=== PATIENT | female | born 1975 | race Two or more races ===

== ENCOUNTER → 2017-06-15 | Outpatient (REF) | payer BC | LOC: M LAB REF 12:19 | DX: N30.01 Acute cystitis with hematuria (principal) | CPT/HCPCS: 87186 ==

== ENCOUNTER 2020-03-15 03:17 | Day surgery (SDC) | payer BC ==
[~2020-03-15] VITALS: Ht 165.1 cm; Wt 65.1 kg
[2020-03-15] VITALS (9 sets, daily range): BP systolic 89–101; BP diastolic 53–57
[2020-03-15] MEDS ORDERED: ALLE180T33 PO (03:26)
[2020-03-15] MEDS ORDERED: NS 1,000 ML IV ONE (03:45)
[2020-03-15 04:13] LABS: BASO % 0.2 % (0.0-1.0); HEMATOCRIT 35.1 % (36.0-47.0); HEMOGLOBIN 11.6 g/dl (12.0-15.5); LYMPH # 0.6 10^3/uL (1.5-5.0); LYMPH % 4.5 % (24.0-44.0); MEAN CORPUSCULAR HEMOGLOBIN 29.1 pg (27.0-33.0); MEAN CORPUSCULAR VOLUME 88.2 fl (80.0-96.0); MONO # 0.8 10^3/uL (0.0-0.8); MONO % 5.6 % (0.0-5.0); NEUTROPHILS # 12.2 10^3/uL (1.5-8.5); NEUTROPHILS % 89.3 % (36.0-66.0); PLATELET COUNT, AUTOMATED 223 10^3/uL (150-450); RED BLOOD COUNT 3.98 10^6/uL (4.00-5.40); WHITE BLOOD COUNT 13.7 10^3/uL (4.0-10.0)
[2020-03-15] MEDS ORDERED: ONDANSETRON 4MG/2ML VIAL IV ONE (04:15)
[2020-03-15] MEDS ORDERED: MORPHINE 4 MG/ML 1ML VIAL/SYRINGE (J2270) IV PRN (04:15)
[2020-03-15] MEDS ORDERED: ACETAMINOPHEN *IV* 1,000 MG in IV 1 EA IV ONE (04:15)
[2020-03-15] MEDS ORDERED: ISOVUE-370 76% 100ML VIAL As Ordered ONE (04:20)
[2020-03-15 04:37] LABS: ALBUMIN 3.9 GM/DL (3.2-5.2); BILIRUBIN,DIRECT 0.2 MG/DL (0.0-0.2); BILIRUBIN,TOTAL 0.7 MG/DL (0.2-1.0); TOTAL PROTEIN 7.4 GM/DL (6.4-8.2)
--- NOTE | 2020-03-15 04:46 | REPVR ---
PROCEDURE INFORMATION: Exam: CT Abdomen And Pelvis With Contrast Exam date and time: 03/15/2020 4:25 AM Age: 44 years old Clinical indication: Abdominal pain; Additional info: Rlq abd pain, n/v/d TECHNIQUE: Imaging protocol: Computed tomography of the abdomen and pelvis with intravenous contrast. Radiation optimization: All CT scans at this facility use at least one of these dose optimization techniques: automated exposure control; mA and/or kV adjustment per patient size (includes targeted exams where dose is matched to clinical indication); or iterative reconstruction. Contrast material: ISO 370; Contrast volume: 100 ml; Contrast route: INTRAVENOUS (IV); COMPARISON: No relevant prior studies available. FINDINGS: Lungs: There is a 5 mm left lower lobe subpleural lung nodule on axial image 6. Minimal bilateral posterior dependent atelectatic changes seen. Liver: Normal. No mass. Gallbladder and bile ducts: Normal. No calcified stones. No ductal dilation. Pancreas: Normal. No ductal dilation. Spleen: Normal. No splenomegaly. Adrenals: Normal. No mass. Kidneys and ureters: Normal. No hydronephrosis. Stomach and bowel: The distal transverse and descending colon are nondistended limiting their evaluation for wall thickening. Appendix: The appendix is enlarged measuring up to 1.1 cm with wall thickening and significant periappendiceal inflammation. Small faint hyperdensities seen at the base and mid aspect of the appendix possibly small appendicoliths. Intraperitoneal space: Unremarkable. No free air. No significant fluid collection. Vasculature: Unremarkable. No abdominal aortic aneurysm. Lymph nodes: Right abdominal reactive lymph nodes are seen. Urinary bladder: Unremarkable as visualized. Reproductive: IUD seen in place. There is 2.4 x 1.5 cm right adnexal and 1.8 x 1.3 cm left adnexal cysts. Bones/joints: Unremarkable. No acute fracture. Soft tissues: Partially imaged is bilateral breast prostheses. IMPRESSION: 1. Acute appendicitis. 2. Bilateral ovarian cysts. 3. 5 mm left lower lobe subpleural lung nodule. - For patients at low risk (minimal or absent history of smoking and of other known risk factors), no routine follow-up is indicated. - For patients at high risk (history of smoking or of other known risk factors), consider optional CT Chest at 12 months. - In patients with known cancer Fleischner Society follow up recommendations for incidental nodules are not indicated. Follow up per the patient's medical condition is suggested. Electronically signed by: Aris Jensen On 03/15/2020 04:46:17 AM
[2020-03-15] MEDS ORDERED: PIPERACILLIN/TAZOBACTAM SOD 3.375 GM in D5W MINI-BAG PLUS 50 ML IV ONE (05:00)
[2020-03-15] MEDS ORDERED: BUPIVACAINE/EPIN 0.25% 30 ML VIAL As Ordered ONE (05:54)
[2020-03-15] MEDS ORDERED: ROCURONIUM BROMIDE 50 MG/5 ML VIAL As Ordered ONE (06:37)
[2020-03-15] MEDS ORDERED: propofoL 200 MG/20 ML VIAL As Ordered ONE (06:38)
[2020-03-15] MEDS ORDERED: ONDANSETRON 4MG/2ML VIAL As Ordered ONE (06:38)
[2020-03-15] MEDS ORDERED: LIDOCAINE 2% 100MG/5ML SDV (FOR ANES.) As Ordered ONE (06:38)
[2020-03-15] MEDS ORDERED: SUGAMMADEX SODIUM 500 MG/5 ML VIAL (BRIDION) As Ordered ONE ×2 (06:39→06:43)
[2020-03-15] MEDS ORDERED: MIDAZOLAM INJ 2MG/2ML VIAL (J2250 PER 1MG) As Ordered ONE (06:39)
[2020-03-15] MEDS ORDERED: KETOROLAC 60MG 2ML VIAL As Ordered ONE ×2 (06:39→07:30)
[2020-03-15] MEDS ORDERED: fentaNYL 100 MCG/2 ML INJECTION (J3010) As Ordered ONE ×2 (06:39→07:14)
[2020-03-15] MEDS ORDERED: dexameTHASONE 4 MG/ML 1ML VIAL (J1100 PER 1MG) As Ordered ONE (06:44)
[2020-03-15] MEDS ORDERED: ePHEDrine SULFATE 25 MG/5 ML(5MG/ML) SYRINGE As Ordered ONE (07:17)
[2020-03-15] MEDS ORDERED: PHENYLephrine HCL 500 MCG/5 ML (100MCG/ML) SYRINGE (J2370) As Ordered ONE (07:21)
[2020-03-15] MEDS ORDERED: METOCLOPRAMIDE INJ 10MG/2ML VIAL (J2765 PER 1) As Ordered ONE (07:30)
[2020-03-15] MEDS ORDERED: NS 1,000 ML IV SCH (07:43)
[2020-03-15] MEDS ORDERED: NORCO, ANEXSIA 5/325MG TABLET (HYDROcodone/ACETAMINOPHEN) PO PRN (07:45)
[2020-03-15] MEDS ORDERED: MORPHINE 2 MG/ML 1ML VIAL (J2270) IV PRN ×2 (07:45)
[2020-03-15] MEDS ORDERED: LR 1,000 ML IV SCH (08:15)
[2020-03-15] MEDS ORDERED: ONDANSETRON 4MG/2ML VIAL IV PRN (08:15)
[2020-03-15] MEDS ORDERED: MEPERIDINE INJ 25 MG/ML VIAL (J2175) IV PRN (08:15)
[2020-03-15] MEDS ORDERED: oxyCODONE 5MG TAB PO PRN (08:15)
[2020-03-15] MEDS ORDERED: fentaNYL 100 MCG/2 ML INJECTION (J3010) IV PRN (08:15)
[2020-03-15] MEDS ORDERED: METOCLOPRAMIDE INJ 10MG/2ML VIAL (J2765 PER 1) IV PRN (08:15)
[2020-03-15] MEDS: PIPERACILLIN/TAZOBACTAM SOD 3.375 GM in D5W MINI-BAG PLUS 50 ML IV SCH ×3 (11:41→22:37)
[2020-03-15] MEDS: KETOROLAC 30 MG/ML 1ML VIAL IV SCH ×2 (14:51→19:52)
[2020-03-16] MEDS: KETOROLAC 30 MG/ML 1ML VIAL IV SCH ×2 (01:51→08:18)
[2020-03-16 02:00] VITALS: BP 105/58
[2020-03-16] MEDS: PIPERACILLIN/TAZOBACTAM SOD 3.375 GM in D5W MINI-BAG PLUS 50 ML IV SCH ×2 (05:11→10:58)
[2020-03-16 06:00] VITALS: BP 113/61
[2020-03-16 10:00] VITALS: BP 112/62
--- NOTE | 2020-04-13 07:41 | RO ---
DATE OF OPERATION: 03/15/2020 PREOPERATIVE DIAGNOSIS: Acute appendicitis. POSTOPERATIVE DIAGNOSIS: Acute appendicitis. PROCEDURE: Laparoscopic appendectomy. SURGEON: Frederick Banuelos M.D. ANESTHESIA: General endotracheal anesthesia. ESTIMATED BLOOD LOSS: Minimal. FLUIDS: Crystalloid. BRIEF PROCEDURE SUMMARY: The patient was brought to the operating room and was given general anesthesia. After adequate anesthesia and preoperative antibiotics were given, the patient was prepped and draped in the usual sterile fashion. Next, a supraumbilical incision was made with the skin knife. Blunt dissection was carried down to the fascia. The fascia was entered with a Veress needle and insufflated to 15 mm of pressure. A dilating 12-mm trocar was placed, and under direct visualization, suprapubic and left lower quadrant 5-mm trocars were placed. Next, the appendix was found in the right lower quadrant. After some blunt dissection with the Harmonic scalpel to mobilize the appendix itself to take down some peritoneal attachments was performed, the mesentery of the appendix was taken with the Harmonic scalpel all the way to the base of the appendix to the cecal wall. Once this was performed, a PACO stapler was placed across the base of the appendix and placed in an EndoCatch bag. The bag was removed through the umbilicus. The right lower quadrant was copiously irrigated until clear. All trocars were removed under direct visualization. Then, 0- Vicryl was used to close the fascia and all incisions were closed with 4-0 Vicryl. Steri-Strips and a dry sterile dressing were applied. The patient was awakened, extubated, and brought to the recovery room awake, alert, and hemodynamically stable. Sponge and needle counts were correct x2. MTDD
== END 2020-03-16 10:59 | disposition home or self-care (01) ==
LOC: M ED 03:17 → M SDC 06:00 → M ED 06:15 → M MSPAV 08:27 → M SDC 03-16 10:59
PROVIDERS: ATTEND Surgery
DX: K35.890 Other acute appendicitis without perforation or gangrene (principal)
CPT/HCPCS: 44970; 74177; 80047; 80076; 81001; 83605; 83690; 84702; 85025; 87040; 88304; 93041; 96361; 96365; 96375; 96376; 99285; J0131; J1100; J1885; J2250; J2270; J2370; J2405; J2543; J2765; J3010; Q9967; U0002

== ENCOUNTER → 2020-03-24 | Outpatient (REF) | payer BC ==
[~2020-03-24] MED LIST: ALLE180T33 PO
== END ==
LOC: M LAB REF 13:38
PROVIDERS: ATTEND Physician Assistant
DX: N39.0 Urinary tract infection, site not specified (principal)

== ENCOUNTER → 2020-06-25 | Outpatient (CLI) | payer SELFPAY | LOC: M LABSMTC 13:29 | PROVIDERS: ATTEND Pediatrics | DX: Z20.822 Contact with and (suspected) exposure to COVID-19 (principal) ==